=== PATIENT | female | born 1995 | race Caucasian/White ===

== ENCOUNTER 2017-11-16 18:32 | Emergency (ER) | payer MEDICAID ==
--- NOTE | 2017-11-16 18:59 | ED Physician Documentation ---
History of Present Illness - Stated complaint Stated Complaint: LT BREAST PX - Chief complaint Chief Complaint: General - History obtained from History obtained from: Patient - History of Present Illness Timing: Other (She is breast-feeding a [id number] who prefers the left side. She has had lateral left breast pain for the last 3 months which has been felt likely to be related to yeast infection. She never really had the classic yeast around the nipple and the child never had thrush although both have been treated on and off with nystatin topically and it sounds like the patient was on something, maybe itraconazole for a few weeks and now is on the fifth of 7 days of Diflucan without improvement. Today her pain was worse. She took a test at home recently and it was negative and she is on control. 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 - Present Medications Home Medications: Ambulatory Orders Medication Instructions Recorded Confirmed Hydrocodone/Acetaminophen 1 - 2 each PO Q6H PRN #7 tablet 03/10/16 [Hydrocodon-Acetaminophen 5-325] Metoclopramide [Reglan] 10 mg PO Q6H PRN #10 tablet 03/10/16 Cephalexin [Keflex] 500 mg PO QID #40 capsule 11/16/17 - Allergies Allergies/Adverse Reactions: Allergies Allergy/AdvReac Type Severity Reaction Status Date / Time No Known Drug Allergies Allergy Verified 01/28/16 21:49 - Social History Does the pt smoke?: No Smoking Status: Never smoker Does the pt drink ETOH?: No Does the pt have substance abuse?: No - Immunizations Immunizations are current?: Yes PD ED PE NORMAL - Vitals Vital signs reviewed: Yes - General General: Alert and oriented X 3, No acute distress - Neck Neck: Supple, no meningeal sign, No bony TTP - Derm Derm: Other (Left breast exam done with Dolores HENSLEY, there is a little white crustiness of the nipple but no yeasty looking material around the nipple itself. Or the areola. The breast otherwise is nontender without warmth or obvious clogged ducts.) - Neuro Neuro: Alert and oriented X 3, Normal speech Results - Vitals Vitals: Vital Signs - 24 hr 11/16/17 11/16/17 18:34 19:44 Temperature 36.4 C L 36.6 C Heart Rate 75 72 Respiratory 18 18 Rate Blood Pressure 133/82 H 119/78 O2 Saturation 100 97 Oxygen O2 Source Room air - Rads (name of study) L breast sono Radiology: EMP read contemporaneously (negative) PD MEDICAL DECISION MAKING - ED course ED course: She has long-standing left breast pain which has been attributed to a fungal infection of which there is no real evidence for right now. Her exam is relatively unremarkable as is an ultrasound here. Could be atypical mastitis and we will trial some antibiotics but what also may be the case is just simply stretching of the Jak's ligaments related to having pendulous breasts in the first place along with engorgement from breast-feeding. - Sepsis Event Vital Signs: Vital Signs - 24 hr 11/16/17 11/16/17 18:34 19:44 Temperature 36.4 C L 36.6 C Heart Rate 75 72 Respiratory 18 18 Rate Blood Pressure 133/82 H 119/78 O2 Saturation 100 97 Oxygen O2 Source Room air Departure - Departure Disposition: 01 Home, Self Care Clinical Impression: Breast pain, left Condition: Good Record reviewed to determine appropriate education?: Yes Prescriptions: Cephalexin [Keflex] 500 mg PO QID #40 capsule Comments: Follow-up with your family doctor in a week regardless. Hopefully after a few days of the Keflex her symptoms will improve. If not you can consider decreasing breast-feeding as discussed, return if worsening or if new symptoms develop, especially fever. Discharge Date/Time: 11/16/17 21:07
[2017-11-16 19:45] VITALS: BP 119/78
--- NOTE | 2017-11-16 21:07 | Ultrasound Report ---
Procedure Date: 11/16/2017 Accession Number: [id number] / [id number] Procedure: US - Breast Unilateral Limited CPT Code: FULL RESULT: EXAM: LEFT BREAST ULTRASOUND. EXAM DATE: 11/16/2017 08:34 PM. CLINICAL HISTORY: Left breast pain. COMPARISON: None. TECHNIQUE: Targeted ultrasound of the left breast performed. Represent metastatic images acquired and reviewed. FINDINGS: Normal glandular tissue is noted in the area of concern from 12 o'clock to 6 o'clock in the left lateral breast. No mass or adenopathy noted. No fluid collections are identified. IMPRESSION: 1. Normal left breast ultrasound. 2. No collection or adenopathy or mass. Comment: If symptoms persist, recommend evaluation at [facility]. [facility]
[2017-11-16] MEDS ORDERED: cephALEXin 250 MG CAPSULE PO ONE (21:15)
== END 2017-11-16 21:07 | disposition home or self-care (01) ==
LOC: ED 18:32
DX: N64.4 Mastodynia (principal)
CPT/HCPCS: 76642; 99283; A9270

== ENCOUNTER 2019-05-14 13:40 | Emergency (ER) | payer MEDICAID ==
[2019-05-14 14:17] LABS: BASOPHILS % (AUTO) 0.3 %; EOSINOPHILS # (AUTO) 0.1 10^3/uL (0.0-0.7); EOSINOPHILS % (AUTO) 0.7 %; HGB - HEMOGLOBIN 13.5 g/dL (12.0-16.0); LYMPHOCYTES # (AUTO) 1.1 10^3/uL (1.5-3.5); MEAN CORPUSCULAR HEMOGLOBIN 26.9 pg (27.0-31.0); MEAN CORPUSCULAR HGB CONC 30.9 g/dL (32.0-36.0); MEAN CORPUSCULAR VOLUME 87.1 fL (81.0-99.0); MEAN PLATELET VOLUME 10.6 fL (7.9-10.8); MONOCYTES # (AUTO) 0.3 10^3/uL (0.0-1.0); MONOCYTES % (AUTO) 2.1 %; NEUTROPHILS # (AUTO) 10.3 10^3/uL (1.5-6.6); NEUTROPHILS % (AUTO) 87.6 %; PLT - PLATELET COUNT 221 10^3/uL (130-450); RED BLOOD COUNT 5.02 10^6/uL (4.20-5.40); RED CELL DISTRIBUTION WIDTH 12.6 % (12.0-15.0); WHITE BLOOD COUNT 11.8 x10^3/uL (4.8-10.8)
[2019-05-14] MEDS ORDERED: ONDANSETRON ODT 4 MG TABLET TL STA (14:31)
[2019-05-14] MEDS ORDERED: ACETAMINOPHEN 325 MG TABLET PO STA (14:31)
--- NOTE | 2019-05-14 14:32 | ED Physician Documentation ---
History of Present Illness - Stated complaint Stated Complaint: V/D/GLYNN - Chief complaint Chief Complaint: Abd Pain - Additonal information Additional information: This is a 23-year-old female with a history of who presents with vom iting and diarrhea. She woke up this morning at 5 AM with vomiting she vomited several times and was nonbloody, nonbilious. Since then she has been nauseated. She has some diffuse abdominal pain which is cramping and located mostly over her mid upper abdomen, but occasionally she has pain in her left lower quadrant as well. She denies dysuria. She took Imodium and this seemed to help a little bit with the diarrhea. She denies chest pain or trouble breathing. No cough. No measured fever. She has a child who had an episode of vomiting a viral illness, no other obvious sick contacts. 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 - Present Medications Home Medications: Ambulatory Orders Medication Instructions Recorded Confirmed Hydrocodone/Acetaminophen 1 - 2 each PO Q6H PRN #7 tablet 03/10/16 [Hydrocodon-Acetaminophen 5-325] Metoclopramide [Reglan] 10 mg PO Q6H PRN #10 tablet 03/10/16 Cephalexin [Keflex] 500 mg PO QID #40 capsule 11/16/17 - Allergies Allergies/Adverse Reactions: Allergies Allergy/AdvReac Type Severity Reaction Status Date / Time No Known Drug Allergies Allergy Verified 05/14/19 13:53 - Social History Does the pt smoke?: No Smoking Status: Never smoker Does the pt drink ETOH?: No Does the pt have substance abuse?: No - Immunizations Immunizations are current?: Yes PD ED PE NORMAL - Vitals Vital signs reviewed: Yes - General General: Alert and oriented X 3, No acute distress - HEENT HEENT: PERRL - Neck Neck: Supple, no meningeal sign - Cardiac Cardiac: RRR - Respiratory Respiratory: No respiratory distress, Clear bilaterally - Abdomen Abdomen: Soft, Non distended, Other (There is mild epigastric tenderness and right upper quadrant tenderness, no guarding, negative Torres sign. No right lower quadrant tender, slight left lower quadrant tenderness with deep palpation.) - Derm Derm: Warm and dry - Extremities Extremities: No deformity - Neuro Neuro: Alert and oriented X 3 - Psych Psych: Normal mood, Normal affect Results - Vitals Vitals: Vital Signs - 24 hr 05/14/19 05/14/19 13:50 16:24 Temperature 36.2 C L 36.9 C Heart Rate 91 84 Respiratory 16 20 Rate Blood Pressure 143/103 H 148/105 H O2 Saturation 100 100 Oxygen O2 Source Room air - Labs Labs: Laboratory Tests 05/14/19 05/14/19 05/14/19 14:10 14:10 14:38 WBC 11.8 H RBC 5.02 Hgb 13.5 Hct 43.7 MCV 87.1 MCH 26.9 L MCHC 30.9 L RDW 12.6 Plt Count 221 MPV 10.6 Neut # (Auto) 10.3 H Lymph # (Auto) 1.1 L [place] # (Auto) 0.3 Eos # (Auto) 0.1 Baso # (Auto) 0.0 Absolute Nucleated RBC 0.00 Nucleated RBC % 0.0 Sodium 139 Potassium 3.8 Chloride 107 Carbon Dioxide 21 Anion Gap 11.0 BUN 13 Creatinine 0.6 Estimated GFR (MDRD) 124 Glucose 87 Calcium 8.9 Total Bilirubin 0.7 AST 14 ALT 12 Alkaline Phosphatase 55 Total Protein 8.2 Albumin 4.5 Globulin 3.7 Albumin/Globulin Ratio 1.2 Lipase 23 Urine Color YELLOW Urine Clarity CLOUDY Urine pH 5.5 Ur Specific [place] >=1.030 H Urine Protein TRACE Urine Glucose (UA) NEGATIVE Urine Ketones NEGATIVE Urine Occult Blood TRACE-LYSE Urine Nitrite NEGATIVE Urine Bilirubin NEGATIVE Urine Urobilinogen 0.2 (NORMAL) Ur Leukocyte Esterase NEGATIVE Urine RBC 0-5 Urine WBC 0-3 Ur Squamous Epith Cells NONE SEEN Urine Bacteria Few Ur Microscopic Review INDICATED Urine Culture Comments NOT INDICATED Urine HCG, Qual 05/14/19 14:38 WBC RBC Hgb Hct MCV MCH MCHC RDW Plt Count MPV Neut # (Auto) Lymph # (Auto) [place] # (Auto) Eos # (Auto) Baso # (Auto) Absolute Nucleated RBC Nucleated RBC % Sodium Potassium Chloride Carbon Dioxide Anion Gap BUN Creatinine Estimated GFR (MDRD) Glucose Calcium Total Bilirubin AST ALT Alkaline Phosphatase Total Protein Albumin Globulin Albumin/Globulin Ratio Lipase Urine Color Urine Clarity Urine pH Ur Specific [place] >=1.030 H Urine Protein Urine Glucose (UA) Urine Ketones Urine Occult Blood Urine Nitrite Urine Bilirubin Urine Urobilinogen Ur Leukocyte Esterase Urine RBC Urine WBC Ur Squamous Epith Cells Urine Bacteria Ur Microscopic Review Urine Culture Comments Urine HCG, Qual NEGATIVE - Rads (name of study) Abd US Radiology: Other (Normal no cholelithiasis or cholecystitis.) PD MEDICAL DECISION MAKING - ED course Complexity details: considered differential (Gastroenteritis, pancreatitis, cholecystitis, biliary colic, enteritis, electrolyte abnormality, ) ED course: Patient is mildly uncomfortable nontoxic-appearing on arrival, vital signs are unremarkable. Labs are drawn and show a mild leukocytosis of 11.8, otherwise her labs are unremarkable her abdominal labs are normal, she has normal lipase, her urine is not convincing for infection and her hCG is negative. On repeat examination patient does not feel particularly better after Zofran. She does have some epigastric tenderness so she was started with an IV and given morphine and Zofran IV as well as a liter of normal saline, and a right upper quadrant ultrasound was ordered.
[2019-05-14 14:34] LABS: ALBUMIN 4.5 g/dL (3.2-5.5); ALBUMIN/GLOBULIN RATIO 1.2 (1.0-2.2); BILIRUBIN,TOTAL 0.7 mg/dL (0.2-1.0); CALCIUM 8.9 mg/dL (8.5-10.3); CREATININE 0.6 mg/dL (0.4-1.0); TOTAL PROTEIN 8.2 g/dL (6.7-8.2)
[2019-05-14 14:47] LABS: BILIRUBIN,URINE NEGATIVE (NEGATIVE); GLUCOSE, URINE (UA) NEGATIVE (NEGATIVE); KETONES,URINE (UA) NEGATIVE (NEGATIVE); LEUKOCYTE ESTERASE, URINE NEGATIVE (NEGATIVE); NITRITE,URINE NEGATIVE (NEGATIVE); OCCULT BLOOD,URINE TRACE-LYSE (NEGATIVE); PH,URINE 5.5 PH (5.0-7.5); PROTEIN,URINE TRACE mg/dL (NEGATIVE); UROBILINOGEN,URINE 0.2 (NORMAL) E.U./dL (NORMAL)
[2019-05-14 14:49] LABS: CLARITY,URINE CLOUDY (CLEAR)
[2019-05-14 14:50] LABS: HCG UR QUAL NEGATIVE
[2019-05-14 14:54] LABS: BACTERIA,URINE Few /HPF (None Seen); RBC,URINE 0-5 /HPF (0-5); SQUAMOUS EPITHELIAL CELL,UR NONE SEEN (<= Few)
[2019-05-14] MEDS ORDERED: ONDANSETRON 4 MG/2 ML VIAL IVP STA (15:23)
[2019-05-14] MEDS ORDERED: MORPHINE 2 MG/ML CARPUJECT IVP STA ×2 (15:23→16:46)
[2019-05-14] MEDS ORDERED: SODIUM CHLORIDE 0.9% 1,000 ML IV ONE (15:39)
--- NOTE | 2019-05-14 16:27 | Ultrasound Report ---
Reason: Epigastric pain, please eval for biliary pathology Procedure Date: 05/14/2019 Accession Number: [id number] / [id number] Procedure: US - Abdomen Limited CPT Code: Final Report FULL RESULT: EXAM: ABDOMEN ULTRASOUND LIMITED, RIGHT UPPER QUADRANT. EXAM DATE: 05/14/2019 04:19 PM. CLINICAL HISTORY: Epigastric pain, please evaluate for biliary pathology. COMPARISON: None. TECHNIQUE: Real-time scanning was performed with static images obtained. FINDINGS: Liver: Normal in size and echotexture. 17.5 cm. Main portal vein flow: Hepatopetal. Gallbladder: Normal. No stones, wall thickening, or sonographic Torres's sign. Biliary System: CBD measures 3 mm. No intrahepatic or extrahepatic ductal dilatation. Other: None. IMPRESSION: Normal. No cholelithiasis or cholecystitis. [facility]
[2019-05-14] MEDS ORDERED: MAG HYDROX/AL HYDROX/SIMETH 30 ML UDC PO STA (16:45)
[2019-05-14] MEDS ORDERED: METOCLOPRAMIDE 10 MG TABLET PO STA (17:19)
[2019-05-14] MEDS ORDERED: METOCLOPRAMIDE 10 MG/2 ML VIAL IVP STA (17:28)
[2019-05-14] MEDS ORDERED: SODIUM CHLORIDE 0.9% 500 ML IV ONE (19:00)
[2019-05-14] MEDS ORDERED: PROMETHAZINE INJ 25 MG in SODIUM CHLORIDE 0.9% 50 ML IV STA (19:00)
[2019-05-14] MEDS ORDERED: ONDANSETRON ODT 4 MG Prepack 2 TL PRN (19:44)
[2019-05-14 20:01] VITALS: BP 144/106
== END 2019-05-14 20:07 | disposition home or self-care (01) ==
LOC: ED 13:40
DX: R10.84 Generalized abdominal pain (principal); R11.2 Nausea with vomiting, unspecified; R19.7 Diarrhea, unspecified; D72.829 Elevated white blood cell count, unspecified
CPT/HCPCS: 36415; 76705; 80053; 81001; 81025; 83690; 85025; 96374; 96375; 96376; 99284; 99285; A9270; J2765; J7040; Q0162; 81003; 87086

== ENCOUNTER 2019-07-11 15:51 | Emergency (ER) | payer MEDICAID ==
--- NOTE | 2019-07-11 19:08 | ED Physician Documentation ---
PD HPI CHEST PAIN - Stated complaint Stated Complaint: RIGHT SIDE PX - Chief complaint Chief Complaint: General - History obtained from History obtained from: Patient - History of Present Illness Timing - onset: How many weeks ago (1 week but worse over past 2 days) Timing - details: Gradual onset, Waxing and waning Quality: Other (burning, stabbing) Location: Right chest (right lateral chest and right axilla) Improved by: Nothing Worsened by: Other (no exacerbating factors) Associated symptoms: No: Shortness of air, Diaphoresis, Nausea, Vomiting, Feeling faint / dizzy, General Weakness, Palpitations, Cough Similar symptoms before: Diagnosis (feels similar to previous episode of mastitis) Recently seen: Not recently seen Review of Systems Constitutional: denies: Fever, Chills, Sweats Cardiac: reports: Chest pain / pressure (right lateral chest wall burning). 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 - Present Medications Home Medications: Ambulatory Orders Medication Instructions Recorded Confirmed Hydrocodone/Acetaminophen 1 - 2 each PO Q6H PRN #7 tablet 03/10/16 [Hydrocodon-Acetaminophen 5-325] Metoclopramide [Reglan] 10 mg PO Q6H PRN #10 tablet 03/10/16 Cephalexin [Keflex] 500 mg PO QID #40 capsule 11/16/17 Famotidine [Acid Controller] 20 mg PO DAILY #14 tablet 05/14/19 Promethazine [Phenergan] 25 mg PO Q6H PRN #10 tab 05/14/19 - Allergies Allergies/Adverse Reactions: Allergies Allergy/AdvReac Type Severity Reaction Status Date / Time No Known Drug Allergies Allergy Verified 07/11/19 16:11 - Social History Does the pt smoke?: No Smoking Status: Never smoker Does the pt drink ETOH?: No Does the pt have substance abuse?: No - Immunizations Immunizations are current?: Yes PD ED PE NORMAL - Vitals Vital signs reviewed: Yes - General General: Alert and oriented X 3, No acute distress, Well developed/nourished - Cardiac Cardiac: RRR, No murmur, No gallop, No rub - Respiratory Respiratory: No respiratory distress, Clear bilaterally - 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 ) - Derm Derm: Normal color, Warm and dry, No rash Results - Vitals Vitals: Vital Signs - 24 hr 07/11/19 07/11/19 16:11 19:26 Temperature 36.7 C 36.9 C Heart Rate 78 76 Respiratory 17 18 Rate Blood Pressure 165/95 H 149/106 H O2 Saturation 100 99 Oxygen O2 Source Room air PD MEDICAL DECISION MAKING - ED course Complexity details: considered differential, d/w patient ED course: No evidence of acute infectious process including mastitis; she is not breast feeding, as she was when she last had mastitis. Emergent testing not indicated at this time, encouraged to return if worse, f/u with PMD if symptoms persist next few days Departure - Departure Disposition: 01 Home, Self Care Clinical Impression: Normal exam Condition: Good Instructions: ED Symptoms No Dx Follow-Up: AGATA MCLEOD DO [Primary Care Provider] - Discharge Date/Time: 07/11/19 19:26
[2019-07-11 19:26] VITALS: BP 149/106
== END 2019-07-11 19:26 | disposition home or self-care (01) ==
LOC: ED 15:51
DX: R07.9 Chest pain, unspecified (principal); I10 Essential (primary) hypertension
CPT/HCPCS: 99282

== ENCOUNTER 2019-10-27 11:28 | Emergency (ER) | payer OTHER, MEDICAID ==
[2019-10-27 11:38] VITALS: BP 173/104
--- NOTE | 2019-10-27 12:33 | ED Physician Documentation ---
History of Present Illness - Stated complaint Stated Complaint: L EYE IRRITATION - Chief complaint Chief Complaint: General - History obtained from History obtained from: Patient - History of Present Illness Timing: Prior to arrival, How many hours ago (4) Pain level max: 5 Pain level now: 0 - Additonal information Additional information: 24-year-old female presents to the emergency department with chief complaint of left eye discomfort. Patient reports that while she was at work a small spray of the cleaning agent [id number] was inadvertently sprayed into her left eye. Patient reports that immediately following the event she went to her works eyewash station and repeatedly flushed her eyes with water for a total duration of probably 15 minutes.Her work is advised her now to be seen in the emergency department. Since the event patient denies any eye pain. She has no visual changes. Her eye is not watering. She does not have a history of contact lens use or corrective eyewear. Review of Systems Constitutional: denies: Fever, Chills Eyes: reports: Irritation. 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 10/27/19 Ophthalmic Ointment] - Allergies Allergies/Adverse Reactions: Allergies Allergy/AdvReac Type Severity Reaction Status Date / Time No Known Drug Allergies Allergy Verified 07/11/19 16:11 - Social History Does the pt smoke?: No Smoking Status: Never smoker Does the pt drink ETOH?: No Does the pt have substance abuse?: No - Immunizations Immunizations are current?: Yes PD ED PE EXPANDED - General General: No: Alert, No acute distress, Well developed/nourished - HEENT HEENT: PERRL, EOMI. No: Pupils unequal - Eyes Eyes: Visual acuity - see nn, PERRL, Normal accommodation, Normal eyelids, Injected conj/sclera (left eye only), Normal corneas, Anterior chambers clear, Other (Ph of the left eye 7.3). No: Eyelid injury, Eyelid swelling, No eyelid FB (everted), Exudate, Conj/sclera FB, Subconj hemorrhage, Scleral icterus, Cor regine FB, Corneal abrasion, Corneal ulcer, Fluorescein uptake Results - Vitals Vitals: Vital Signs - 24 hr 10/27/19 11:36 Temperature 36.8 C Heart Rate 82 Respiratory 16 Rate Blood Pressure 173/104 H O2 Saturation 100 Oxygen O2 Source Room air PD MEDICAL DECISION MAKING - ED course Complexity details: reviewed results, d/w patient, d/w family ED course: 24-year-old female presents to the emergency department with chief complaint of left eye irritation after accidentally getting the cleaning agent [id number] sprayed into her left eye 1 time. - Eye has been thoroughly irrigated with water for approximately 15 minutes. -The pH of her eye is normal at this time. Fluorescein uptake is negative with no findings suggestive of corneal abrasion or ulceration. - Her eye is not painful at this time she has no watering or discharge. - Will recommend a lubricating eye ointment to be used as needed for the next few days and follow-up with her Workmen's Comp. 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 Departure - Departure Disposition: 01 Home, Self Care Clinical Impression: Left eye pain, Chemical exposure of eye Prescriptions: Erythromycin Base [Erythromycin Ophthalmic Ointment] 3.5 gm OP Q6HR PRN #1 oint...g. PRN Reason: Pain Comments: You have mild left eye conjunctivitis after the chemical was sprayed in your eye. The Ph of yor eye is normal and there were no signs of abrasion Please fill the prescription for the eye ointment and use in the left eye every 6 hours as needed for discomfort. Please follow up with your eye doctor or workman's comp enterprise services manager in the next week for reevaluation. return to the ED sooner for vision changes, worsening pain or other concerns
== END 2019-10-27 13:33 | disposition home or self-care (01) ==
LOC: ED 11:28
DX: T55.1X1A Toxic effect of detergents, accidental (unintentional), initial encounter (principal); H10.212 Acute toxic conjunctivitis, left eye; Y99.0 Civilian activity done for income or pay; I10 Essential (primary) hypertension
CPT/HCPCS: 1040M; 99282; 99283

== ENCOUNTER 2021-10-09 17:38 | Outpatient (CLI) | payer MEDICAID | END 2021-10-09 17:39 | disposition EMS.NT | LOC: EMS 17:38 | DX: R51.9 Headache, unspecified (principal) ==